=== PATIENT | male | born 1950 ===

== ENCOUNTER 2020-03-20 07:44 | Day surgery (SDC) | payer OTHER ==
[~2020-03-20 07:44] MED LIST: DILANTIN100 MG PO; [UNRECOGNIZED DRUG - OTHER] PO
== END 2020-03-20 18:40 | disposition home or self-care (01) ==
LOC: CIR.AMB 07:44 → ADM 12:00 → CIR.AMB 12:00
PROVIDERS: ATTEND Colon & Rectal Surgery
DX: K60.1 Chronic anal fissure (principal)